=== PATIENT | male | born 1970 | race Caucasian/White ===

== ENCOUNTER 2019-08-15 19:54 | Day surgery (SDC) | payer SELFPAY ==
[~2019-08-15] VITALS: Ht 182.9 cm; Wt 118.2 kg
[2019-08-15] MEDS ORDERED: BUSPAR10 MG PO (19:58)
[2019-08-15] MEDS ORDERED: PROZAC10 MG PO (19:58)
[2019-08-15] MEDS ORDERED: LEXAPRO10 MG (19:59)
[2019-08-15 21:49] VITALS: Ht 182.9 cm; Wt 118.2 kg
[2019-08-15 22:11] VITALS: BP 131/76
[2019-08-15 22:17] LABS: HEMATOCRIT 47.9 % (42.0-54.0); HEMOGLOBIN 16.1 g/dL (13.5-17.5); LYMPHOCYTES 22.2 % (15-50); MCH 28.8 pg (26.0-34.0); MCHC 33.6 g/dL (31.0-37.0); MCV 85.5 fL (80.0-100.0); MEAN PLATELET VOLUME 9.6 fL (7.4-10.4); NEUTROPHILS 70.9 % (40-80); PLATELET COUNT 254 10x3/uL (130-400); RDW 13.5 % (11.5-14.5); WBC 11.3 10x3/uL (4.8-10.8)
[2019-08-15 22:22] LABS: ANION GAP 9.3 mmol/L (8-16); CALCIUM 8.4 mg/dL (8.5-10.1); CARBON DIOXIDE 29.7 mmol/L (21.0-32.0); CREATININE - SERUM 1.3 mg/dL (0.6-1.3)
--- NOTE | 2019-08-16 01:12 | NUR ---
I20G IV D/C'D FROM PATIENT'S LEFT AC, TIP INTACT. ESCORTED PATIENT TO ER DOORS VIA WHEELCHAIR WHERE FAMILY WAS WAITING. PATIENT HAD NO S/S OF DISTRESS AND WAS ABLE TO DRINK WITHOUT DIFFICULTY.
== END 2019-08-16 01:12 | disposition home or self-care (01) ==
LOC: D.ER 19:54 → D.OPS 19:54 → EDSTATUS 22:55 → D.MS 22:58 → D.OPS 08-16 01:12
PROVIDERS: Family Medicine; ATTEND Internal Medicine Gastroenterology
DX: T17.228A Food in pharynx causing other injury, initial encounter (principal)